=== PATIENT | female | born 1995 | race Caucasian/White ===

== ENCOUNTER → 2021-11-17 | Outpatient (CLI) | payer BC ==
[2021-11-19 01:10] LABS: CHLAMYDIA TRACHOMATIS, NAA Negative (Negative)
== END | disposition home or self-care (01) ==
LOC: LAB SHORT 12:16 → LAB 12:16
PROVIDERS: Advanced Practice Midwife
DX: Z01.419 Encounter for gynecological examination (general) (routine) without abnormal findings (principal); Z11.3 Encounter for screening for infections with a predominantly sexual mode of transmission
CPT/HCPCS: 87491; 87591; G0123

== ENCOUNTER → 2022-04-22 | Outpatient (CLI) | payer BC | END | disposition home or self-care (01) | LOC: LAB SHORT 09:48 → LAB 09:48 | DX: O09.93 Supervision of high risk pregnancy, unspecified, third trimester (principal) | CPT/HCPCS: 87081; 87150 ==

== ENCOUNTER 2022-05-26 03:54 | Inpatient (IN) | payer BC ==
[~2022-05-26] VITALS: Ht 170.2 cm; Wt 74.5 kg
[2022-05-26 05:47] LABS: BASOPHILS ABSOLUTE AUTO 0.05 K/mm3 (0.00-0.23); BASOPHILS PERCENT AUTO 0 % (0-2); EOSINOPHILS ABSOLUTE AUTO 0.15 K/mm3 (0.00-0.68); EOSINOPHILS PERCENT AUTO 1 % (0-6); Hematocrit 33.1 % (33.0-51.0); Hemoglobin 11.4 g/dL (11.5-16.0); IMMATURE GRAN ABSOLUTE AUTO 0.18 K/mm3 (0.00-0.10); IMMATURE GRAN PERCENT AUTO 1 % (0-1); LYMPHOCYTES ABSOLUTE AUTO 1.92 K/mm3 (0.84-5.20); LYMPHOCYTES PERCENT AUTO 11 % (21-46); MONOCYTES ABSOLUTE AUTO 0.84 K/mm3 (0.16-1.47); MONOCYTES PERCENT AUTO 5 % (4-13); Mean Corpuscular HGB 29.8 pg (26.0-34.0); Mean Corpuscular HGB Conc 34.4 g/dL (31.5-36.5); Mean Corpuscular Volume 87 fL (80-100); Mean Platelet Volume 11.5 fL (9.1-12.4); NEUTROPHILS ABSOLUTE AUTO 15.17 K/mm3 (1.96-9.15); NEUTROPHILS PERCENT AUTO 83 % (41-73); Platelet Count 221 K/mm3 (150-400); RDW Coefficient Variation 13.2 % (11.7-14.2); Red Blood Cell Count 3.82 M/mm3 (3.80-5.20); White Blood Cell Count 18.31 K/mm3 (4.00-11.30)
[2022-05-27 06:25] LABS: Hemoglobin 10.2 g/dL (11.5-16.0); Mean Corpuscular HGB 30.4 pg (26.0-34.0); Mean Corpuscular Volume 90 fL (80-100); Mean Platelet Volume 11.6 fL (9.1-12.4); Platelet Count 186 K/mm3 (150-400); RDW Coefficient Variation 13.5 % (11.7-14.2); RDW Standard Deviation 43.8 fL (35.1-46.3); Red Blood Cell Count 3.35 M/mm3 (3.80-5.20); White Blood Cell Count 15.18 K/mm3 (4.00-11.30)
--- NOTE | 2022-05-27 07:10 | NUR ---
CARE MANAGEMENT/INSPECTION MACHINE TENDER LOLLY CALLED, NO ANSWER, MESSAGE LEFT ABOUT EDPS SCORE OF 1 ON QUESTION NUMBER 10. REFERRAL PLACED IN ORDERS.
--- NOTE | 2022-05-27 08:15 | NUR ---
LUIS E PATEL CNM UPDATED ON EDPS SCORE OF 4 AND A 1 ON QUESTION 10. UPDATED THAT SOCIAL SERVICE REFERRAL HAS BEEN PLACED AND MESSAGED LEFT TO SEE PT THIS MORNING.
--- NOTE | 2022-05-27 08:54 | NUR ---
ANASTASIA FROM GENERAL II FARMWORKER/CARE MANAGMENT AT PT BEDSIDE
--- NOTE | 2022-05-27 09:50 | NUR ---
DISCHARGE PACKET GIVEN TO PT. QUESTIONS ANSWERED. BANDS MATCHED. PT TO DISCHCARGE HOME WITH . HAS HER 2 WEEK AND 6 WEEK POST FOLLOW UP APPOINTMENTS SCHEDULED AND KNOWS SHE CAN CALL TO BE SEEN SOONER NEEDED.
== END 2022-05-27 09:55 | disposition home or self-care (01) | DRG 806 ==
LOC: OBS 03:54 → BC 04:05
PROVIDERS: ADMIT Advanced Practice Midwife
PROC: 10E0XZZ Delivery of Products of Conception, External Approach (ICD-10-PCS; principal; 2022-05-26)
PROC: 10907ZC Drainage of Amniotic Fluid, Therapeutic from Products of Conception, Via Natural or Artificial Opening (ICD-10-PCS; 2022-05-26)
DX: O48.0 Post-term pregnancy (principal); O99.324 Drug use complicating childbirth; Z37.0 Single live birth; O99.344 Other mental disorders complicating childbirth; F41.3 Other mixed anxiety disorders; Z28.21 Immunization not carried out because of patient refusal; F12.90 Cannabis use, unspecified, uncomplicated; Z3A.40 40 weeks gestation of pregnancy; Z67.30 Type AB blood, Rh positive; Z87.891 Personal history of nicotine dependence; Z98.818 Other dental procedure status; Z88.2 Allergy status to sulfonamides
CPT/HCPCS: 36415; 85025; 85027; 86850; 86900; 86901; A9270; J1885; J2210; J2590; J7120